=== PATIENT | female | born 1950 | race Caucasian/White ===

== ENCOUNTER 2017-03-29 01:55 | Observation (INO) | payer OTHER ==
[~2017-03-29] VITALS: Ht 165.1 cm; Wt 59.0 kg
--- NOTE | ~2017-03-29 | HP ---
Unit #: [id number] #: [id number] Patient: GARRY SCHROEDER [id number] [address] [place], [place] [address] [id number] I MR#: [id number] NAME: GARRY SCHROEDER ROOM: 563 Age: 66 Sex: F Admission Date: 03/29/2017 : 1950 Attending Physician: Arlette Tavares M.D. Primary Care Physician: Favio Oleary Jr., M.D. HISTORY AND PHYSICAL CHIEF COMPLAINT Acute back pain, elevated temperature. HISTORY OF PRESENT ILLNESS Ms. Alan Zacarias is a 66-year-old female with a history of chronic back pain who presents to the ER for acute onset of back pain. I will note, history is taken both from the patient and the ER record and they seem to differ. Patient informed the ER she was having worsening back pain more so in the flank than normal over the past one week. However, last night while watching a movie she developed intense bilateral flank pain that she assumed was her kidneys and thus presented to the emergency department. Upon presentation, the patient was tachycardic and had a temperature of 100.5. She was also hypertensive. Her O2 sats were 97% on 2 L per nasal cannula, which was her baseline oxygen requirement. Her urinalysis was unremarkable for urinary tract infection and blood work was also essentially unremarkable. However, due to her elevated temperatures she was been referred for admission. She denies feeling feverish at home the last few days. She did have a sore throat a few days ago for which she gargled and has not felt bad otherwise. She has not had any new shortness of breath. She has not had any chest pain. She has not had any cough. She has not had any dysuria, but she has a new onset urinary frequency with what sounds like both urge incontinence and just uncontrolled incontinence, which is new. She denies any new lower extremity weakness or numbness. She is quite concerned and is insistent her kidneys are causing her trouble. I will note, she did undergo a CT scan of the abdomen and pelvis, which did not reveal any acute findings. PAST MEDICAL HISTORY 1. Chronic back pain for which the patient is maintained on narcotics. 2. Chronic hypoxic respiratory failure maintained on 2 L of oxygen per nasal cannula continuously. 3. COPD. 4. Hypertension. 5. Anxiety with depression maintained on chronic benzodiazepines. 6. Seizure disorder. PAST SURGICAL HISTORY Multiple back surgeries, appendectomy at age 6 and right arm surgery after trauma. She did have a waqas placed. ALLERGIES Cephalexin, Bactrim, amoxicillin, irbesartan. FAMILY HISTORY Unit #: [id number] #: [id number] Patient: GARRY SCHROEDER Positive for non-Hodgkin lymphoma in patient's mother who is . Patient's father had mesothelioma and is also . SOCIAL HISTORY The patient quit smoking four to five years ago. She states she smokes "a lot for many years but will not quantify otherwise. No alcohol use. No illicit drug use. She does live by herself and denies any recent falls at home. REVIEW OF SYSTEMS Patient states currently her acute onset of back pain is resolved. She cannot tell me whether it is sharp, stabby, crampy or electrical, just that "it hurt a lot." Again elevated temperature. No new cough. New urinary urgency. No constipation. No diarrhea. No melena. No hematochezia. No chest pain. No palpitations. Sore throat has noted no division changes. No knew tingle, numbness, or weakness of extremities. Otherwise ten point review of systems is negative. Please note, patient has taken three to four days of clindamycin, thinking it would help her kidneys. PHYSICAL EXAMINATION VITAL SIGNS: Maximum temperature 100.5, current temperature 100.1, pulse 79, down from 110s. Respiratory rate 21, blood pressure 159/90, oxygen saturation is 97% on 2 L per nasal cannula. GENERAL: Patient is awake, she is alert, and she is oriented x3 and quite anxious. HEENT: Pupils equal, round, reactive to light bilaterally. Anicteric sclerae. No conjunctival pallor. Oropharynx with moist mucous membranes. No erythema or exudate. Very poor dentition with several missing teeth and/or decayed teeth. NECK: Supple. No lymphadenopathy. No thyromegaly. No JVD. HEART: Tachycardiac upon auscultation but regular rhythm without murmur, rub or gallop. LUNGS: Diminished bilaterally but otherwise clear without any wheezes, rhonchi or crackles. ABDOMEN: Soft, nontender, nondistended, positive bowel sounds. No appreciable hepatosplenomegaly. EXTREMITIES: No cyanosis, clubbing or edema. Pedal pulses 2/4. SKIN: Warm and moist without rash. MUSCULOSKELETAL: No significant joint abnormalities noted in the upper lower extremities. Scoliosis of the back and kyphosis of the back also noted. There is some mild tenderness to palpation and thickening of the muscle in the flanks in the thoracic to lumbar region bilaterally. NEUROLOGIC: Cranial nerves II-XII intact. Sensation and strength in deep tendon reflexes are normal in upper and lower extremities bilaterally. PSYCHIATRIC: Anxious. No suicidal or homicidal ideation. DIAGNOSTIC STUDIES LABORATORY STUDIES: Lab work done in the emergency department reveals a white blood cell count of 9.6, hemoglobin 12.9, platelet count of 352,000. Urinalysis reveals 1+ protein but is negative for any signs of infection. Sodium 136, potassium 2.9, chloride 95, bicarb 29, BUN 7, creatinine 0.5, glucose 134. IMAGING STUDIES: A CT scan of the abdomen and pelvis done in the emergency department revealed diverticulosis. The sigmoid and descending colon without evidence of diverticulitis. Calcified uterine fibroid noted and pulmonary emphysema noted. Unit #: [id number] #: [id number] Patient: GARRY SCHROEDER Chest x-ray reveals changes of COPD including hyperinflation, otherwise lungs are clear. CARDIOLOGY STUDIES: EKG revealed sinus tachycardiac without any other acute ST or T wave abnormalities. ASSESSMENT 1. Elevated temperature with no identifiable source of infection. 2. Systemic inflammatory response disease versus sepsis. 3. Acute on chronic back pain, I suspect muscular in origin. 4. New onset urinary incontinence with negative workup for urinary tract infection. 5. Hypokalemia. 6. COPD without exacerbation. 7. Chronic hypoxic respiratory failure maintained on 2 L of oxygen per nasal cannula. 8. Hypertension. 9. Depression with anxiety. 10. Seizure disorder. 11. Chronic pain syndrome. PLAN 1. Will place patient in observation with telemetry. 2. Given infectious workup to this point has been negative. I am going to hold any further antibiotics unless patient develops a temperature greater than 101. Will monitor fever closely and will repeat CBC in the morning. 3. Will continue patient's chronic home pain medications and will have PT, OT and eval and treat. Given her lack of new symptoms in the lower extremities, I doubt any sort of acute nerve compression, causing either he pain and/or her new onset urinary incontinence. 4. Will replace potassium orally in addition to placing patient on K mag protocol and will check a magnesium level up on lab. 5. I will check post void residual regarding patient's urinary incontinence to see if she has a significant residual period. Her symptom sound primarily like urge incontinence. 6. Continue oxygen at home dose. I will also continue home medication for COPD. I do not feel Solu-Medrol is indicated the way patient sounds today. 7. Will continue home medications for anxiety and chronic pain in addition to hypertension and seizure disorder. 8. Early ambulation is DVT prophylaxis. Dictated by Arlette Tavares M.D. SAUMAY/jefferson TD: 03/29/2017 09:16 JOB #: [id number] Unit #: [id number] #: [id number] Patient: GARRY SCHROEDER HISTORY AND PHYSICAL Page 1 of 1 X Arlette Tavares MD X HISTORY AND PHYSICAL
--- NOTE | ~2017-03-29 | DS ---
Unit #: [id number] #: [id number] Patient: GARRY SCHROEDER [id number] [address] [address] [id number] I MR#: [id number] NAME: GARRY SCHROEDER ROOM: 563 Age: 66 Sex: F Admission Date: 03/29/2017 : 1950 Discharge Date: 03/30/2017 Attending Physician: Arlette Tavares M.D. Primary Care Physician: Favio Oleary Jr., M.D. DISCHARGE SUMMARY PRINCIPAL DIAGNOSES 1. Elevated temperature without obvious source of infection. 2. New onset incontinence which appears to be most likely urge incontinence. 3. Acute back pain secondary to muscle spasm. 4. Severe lumbar degenerative disk disease with moderate to severe canal stenosis at L4-L5, being followed on an outpatient basis. 5. Hypokalemia. 6. Chronic hypoxic respiratory failure, maintained on 2 liters of oxygen per nasal cannula continuously. 7. Chronic obstructive pulmonary disease. 8. Anxiety and depression. 9. Hypertension. 10. Seizure disorder. 11. Mild deconditioning. 12. Chronic pain syndrome, maintained on narcotics. 13. Osteoporosis. CONSULTANTS None. DIAGNOSTIC DATA IMAGING: CT scan of the lumbar spine without contrast on 03/30/2017 with a T12 age indeterminate compression fracture of 23%. The patient also has an L2 compression approximately 19% compression, age indeterminate. Moderate to severe canal stenosis at L4-L5 with associated bilateral foraminal narrowing and stenosis. Please note, the patient had MRI two weeks ago that revealed similar findings. CT scan of the abdomen and pelvis without contrast on 03/29/2017 with no acute abnormalities. Diverticulosis of the sigmoid and descending colon is noted and changes of emphysema noted. CLINICAL HISTORY/HOSPITAL COURSE Ms. Phillips is a 66-year-old female who presented to the emergency department with the abrupt onset of severe back pain. Please refer to history and physical for further details. In the emergency room she was also found to have an elevated temperature of 100.5. However, infectious workup was negative and CT scan did not reveal any acute findings. The patient was subsequently admitted. In regard to the patient's elevated temperature, this was simply monitored and she had no recurrent fever during hospitalization. She has no infectious symptoms. Workup is negative and again no antibiotics on Unit #: [id number] #: [id number] Patient: GARRY SCHROEDER discharge. In regard to the patient's severe back pain, initially it was thought that this might represent kidney stone and/or urine infection, but workup for both of these conditions was negative. I suspect the patient had abrupt severe muscle spasm, perhaps induced by her hypokalemia. She has had no recurrent symptoms during hospitalization. The patient does have severe back pain and it appears that her function at home has been declining over the last several weeks after discussion with family. Given she also has relatively new incontinence which is consistent with urge incontinence by history, I did do CT scan of her lower spine, but this did not reveal any new compression fractures. The patient did have MRI of her spine done about two weeks ago and she was having the incontinence at that time as well. She is not having any saddle anesthesia. No new lower extremity numbness or weakness. I think she can be followed up by her spine surgeon on an outpatient basis. The patient's other chronic conditions remain stable and she will be discharged home today. DISCHARGE CONDITION Stable. DISPOSITION Discharge to home. FOLLOWUP 1. She will have home health upon discharge for physical therapy and to. 2. The patient will follow up with [facility] in one week. 3. She will follow up with (1) Spine surgery as previously determined. DISCHARGE MEDICATIONS 1. Prednisone 20 mg 1 tablet p.o. daily for 2 days, then half tablet p.o. for 2 days, then discontinue. 2. Ventolin nebulizer treatments b.i.d. 3. Advair 500/50 1 puff b.i.d. 4. Tegretol 100 mg b.i.d. 5. Gabapentin 300 mg t.i.d. 6. Cymbalta 30 mg b.i.d. 7. Norvasc 10 mg daily. 8. Metoprolol succinate 25 mg b.i.d. 9. Clonidine 0.1 mg b.i.d. 10. Ibuprofen 800 mg p.o. t.i.d. p.r.n. pain. 11. Hydrocodone/Tylenol 7.5/300 mg 1 q.6 h. p.r.n. pain. 12. Flexeril 5 mg p.o. q.8 h. p.r.n. muscle spasm. DISCHARGE DIET The patient is instructed to follow a heart healthy diet. She can increase her activity as tolerated. She is to wear oxygen at 2 liters at all times. Dictated by... Arlette Tavares M.D. Unit #: [id number] #: [id number] Patient: GARRY SCHROEDER ZOILAH/gz TD: 03/31/2017 11:09 JOB #: [id number] DISCHARGE SUMMARY Page 1 of 1 X Arlette Tavares MD X DISCHARGE SUMMARY
--- NOTE | ~2017-03-29 | CT98 ---
[facility] A Service of [facility] & [facility] RADIOLOGY TEXT RESULTS PATIENT: GARRY SCHROEDER LOCATION: [facility] 563-01 : [birth year] UNIT #: [id number] AGE: [address]: Arlette Tavares MD SEX: F ORDER DR: [id number] [facility] [address]. [place], [place] [address] [id number] I MR#: [id number] #: [id number] NAME: GARRY SCHROEDER : 1950 SEX: F STUDY DATE/TIME: 03/30/2017 12:17 UNIT: [facility] ROOM: [facility] STUDY DESCRIPTION: CT Lumbar Spine Wo Cont Attending Physician: Arlette Tavares M.D. Ordering Physician: Arlette Tavares M.D. Primary Care Physician: Favio Oleary Jr., M.D. MEDICAL IMAGING REPORT This report is preliminary unless electronic signature is present EXAMINATION CT lumbar spine without contrast. DATE 03/30/2017 HISTORY Loss of bladder control for 1 week and low back pain for 2 days. History of seizures. COMPARISON CT abdomen and pelvis without contrast, bone windows 03/29/2017. No previous dedicated lumbar spine imaging at this institution for comparison. PROCEDURE 2 mm axial images through the lumbar spine without contrast. Sagittal and coronal reformatted images were obtained. This CT exam was performed with one or more of the following radiation dose reduction techniques: automatic exposure control, adjustment of mA and/or kV according to patient size, and iterative reconstruction. FINDINGS The study is limited secondary to attenuation by the patient's body habitus. No vertebral body subluxation is seen. There is moderate diminished disc space height at L1-2, L2-3, mild diminished disc height at L3-4. Age-indeterminate compression fracture of the superior endplate of T12 with 23% loss of vertebral body height, but no retropulsion or subluxation. Age indeterminate fracture of the superior endplate of L2 with 19% loss of vertebral body height, but no bony retropulsion or subluxation. Suspected chronic compression deformity of the inferior endplate of L3 with Schmorl STS. [facility] A Service of [facility] & [facility] RADIOLOGY TEXT RESULTS PATIENT: GARRY SCHROEDER LOCATION: [facility] 563-01 : [birth year] UNIT #: [id number] AGE: [address]: Arlette Tavares MD SEX: F ORDER DR: node protrusion with approximately 31% loss of vertebral body height, but no bony retropulsion or subluxation. Suspected chronic compression deformity of the inferior endplate of L4 with Schmorl node protrusion with 25% loss of vertebral body height, but no definite bony retropulsion or subluxation. At T12-L1, no significant disc bulge, canal or foraminal stenosis is seen. At L1-2, there is mild concentric disc osteophyte formation with mild facet arthropathy. There is mild canal stenosis. Probable mild bilateral inferior neural foraminal narrowing. At L2-3, there is concentric disc osteophyte formation with mild bilateral facet arthropathy and ligament flavum hypertrophy. Mild canal stenosis and mild to moderate bilateral inferior neural foraminal narrowing is thought to be present. At L3-4, there is concentric disc bulge with mild bilateral facet arthropathy, probable mild canal stenosis and mild to pvrt-la-[id number] bilateral inferior neural foraminal narrowing. At L4-5, there is concentric disc osteophyte formation with moderate to mild facet arthropathy ligament flavum hypertrophy. Suspected moderate to severe canal stenosis and moderate to severe bilateral inferior neural foraminal narrowing. At L5-S1, there is mild bilateral facet arthropathy without significant canal or foraminal stenosis. IMPRESSION 1. Age indeterminant compression deformity of the superior endplate of T12 with 23% loss of vertebral body height but no bony retropulsion or subluxation. 2. Age indeterminant compression deformity of the superior endplate of L2 with 19% loss of vertebral body height, but no bony retropulsion or subluxation. 3. Chronic-appearing compression deformities with Schmorl node protrusions involving the inferior endplates of L4 and L3. 4. Suspected moderate to moderate severe canal stenosis at L4-5 due to the presence of concentric disc osteophyte formation and facet arthropathy. Suspected moderate to severe bilateral neural foraminal narrowing at that level, as well. 5. If it would aid in clinical management, MRI of the lumbar spine may prove helpful to evaluate for vertebral body edema, in order to determine chronicity of compression deformities, may help to further elucidate any potential canal or foraminal compromise. 6. This study is limited secondary to the patient's body habitus. [facility] A Service of [facility] RADIOLOGY TEXT RESULTS PATIENT: GARRY SCHROEDER LOCATION: [facility] : [birth year] UNIT #: [id number] AGE: [address]: Arlette Tavares MD SEX: F ORDER DR: Dictated by... Nevaeh Tate M.D. THIS IS AN ELECTRONICALLY VERIFIED REPORT Nevaeh Tate M.D. at 03/31/2017 1:52 PM JENA/lety TD: 03/30/2017 17:17 JOB #: [id number] MEDICAL IMAGING REPORT Page 1 of 1 COPY
--- NOTE | ~2017-03-29 | CT4 ---
[facility] A Service of [facility] & [facility] RADIOLOGY TEXT RESULTS PATIENT: GARRY SCHROEDER LOCATION: [facility] 563-01 : [birth year] UNIT #: [id number] AGE: [address]: Arlette Tavares MD SEX: F ORDER DR: [id number] [facility] [address] [place] [address]. [place], [place] [address] [id number] I MR#: [id number] Acc #: [id number] NAME: GARRY SCHROEDER : 1950 SEX: F STUDY DATE/TIME: 03/29/2017 4:23 UNIT: [facility] ROOM: [facility] STUDY DESCRIPTION: CT Abd and Pelv Wo Cont Attending Physician: Arlette Tavares M.D. Ordering Physician: Grzegorz Frank Aprn Primary Care Physician: Favio Oleary Jr., M.D. MEDICAL IMAGING REPORT This report is preliminary unless electronic signature is present EXAM CT abdomen and pelvis, noncontrast, 03/29/2017. HISTORY 66-year-old female in the ED complaining of a 1-week history of lower abdomen pain, worsening tonight. Shortness of air, back pain. TECHNIQUE CT examination of the abdomen and pelvis was performed without oral or IV contrast, as ordered. This CT exam was performed with one or more of the following radiation dose reduction techniques: automatic exposure control, adjustment of mA and/or kV according to patient size, and iterative reconstruction. FINDINGS ABDOMEN FINDINGS: Liver, pancreas and spleen are normal in size and appearance without contrast. No gallbladder distension or bile duct dilatation. Both kidneys are negative with no visible nephrolithiasis or evidence of urinary obstruction. Xjlv-xv-[id number] sigmoid and descending colonic diverticulosis, but no CT evidence of acute diverticulitis. Small bowel and colon are otherwise within normal limits, as imaged. The appendix is surgically absent by history. Abdominal aorta is normal in caliber. PELVIS FINDINGS: Small densely calcified uterine fibroid. Uterus, ovaries, urinary bladder, and rectum are otherwise negative. No inguinal hernia. Limited lung base images show pulmonary emphysema. Mild, chronic-appearing vertebral compression deformities at T12 and L2. STS. [facility] A Service of [facility] & [facility] RADIOLOGY TEXT RESULTS PATIENT: GARRY SCHROEDER LOCATION: [facility] 563-01 : [birth year] UNIT #: [id number] AGE: [address]: Arlette Tavares MD SEX: F ORDER DR: IMPRESSION 1. No acute abnormality within the abdomen or pelvis. 2. Sigmoid and descending colonic diverticulosis without evidence of diverticulitis. The appendix is surgically absent. 3. Tiny calcified uterine fibroid. 4. Pulmonary emphysema. Dictated by... Benedict Posada M.D. THIS IS AN ELECTRONICALLY VERIFIED REPORT Benedict Posada M.D. at 03/29/2017 9:46 PM SOPHIAW/anne TD: 03/29/2017 10:43 JOB #: [id number] MEDICAL IMAGING REPORT Page 1 of 1 COPY
--- NOTE | ~2017-03-29 | EKG ---
PATIENT: GARRY SCHROEDER UNIT #: [id number] Ventricular Rate: 134 BPM Atrial Rate: 134 BPM P-R Interval: 114 ms QRS Duration: 68 ms Q-T Interval: 306 ms QTC Calculation(Bezet): 456 ms P [place]: 84 degrees Calculated R [place]: 63 degrees Calculated T [place]: 58 degrees Diagnosis Line: Sinus tachycardia Diagnosis Line: Poor data quality Diagnosis Line: Borderline ECG Diagnosis Line: No previous ECGs available Diagnosis Line: Confirmed by PHILL TADEO MD ([id number]) on 03/30/2017 Diagnosis Line: 10:17:34 PM INTERPRETING MD: CARLYLE NARAYAN
--- NOTE | ~2017-03-29 | CR72 ---
[facility] A Service of [facility] & [facility] RADIOLOGY TEXT RESULTS PATIENT: GARRY SCHROEDER LOCATION: [facility] 563-01 : [birth year] UNIT #: [id number] AGE: [address]: Arlette Tavares MD SEX: F ORDER DR: [id number] [facility] [address] [place], [place] [address] [id number] I MR#: [id number] Acc #: [id number] NAME: GARRY SCHROEDER : 1950 SEX: F STUDY DATE/TIME: 03/29/2017 3:27 UNIT: [facility] ROOM: [facility] STUDY DESCRIPTION: CR Chest Single View Portable Attending Physician: Arlette Tavares M.D. Ordering Physician: Grzegorz Frank Aprn Primary Care Physician: Favio Oleary Jr., M.D. MEDICAL IMAGING REPORT This report is preliminary unless electronic signature is present EXAM Chest x-ray 03/29/2017 HISTORY 66-year-old female in the ED complaining of 3-day history of chest pain, shortness of air, cough, congestion and fever. TECHNIQUE AP portable chest x-ray. FINDINGS Pulmonary hyperinflation and diffuse lung hyperlucency compatible with COPD. The lungs appear clear. Heart size and pulmonary vascularity are normal. Previous mid thoracic vertebroplasty. No change since 08/16/2010. IMPRESSION 1. No active disease. 2. COPD. The lungs appear clear. Dictated by... Benedict Posada M.D. THIS IS AN ELECTRONICALLY VERIFIED REPORT Benedict Posada M.D. at 03/29/2017 9:46 PM RGW/alessandro TD: 03/29/2017 09:07 JOB #: [id number] MEDICAL IMAGING REPORT Page 1 of 1 COPY
[~2017-03-29 01:55] MED LIST: ADVAIR 5001 DISK W/D; ALLEGRA-D1 TAB.SR1; TEGRETOL PO
[2017-03-29 03:33] LABS: URINE APPEARANCE CLEAR; URINE BILIRUBIN NEG (NEG); URINE BLOOD NEG (NEG); URINE COLOR YELLOW; URINE GLUCOSE NEG (NEG); URINE KETONE NEG (NEG); URINE LEUKOCYTE ESTERASE NEG (NEG); URINE NITRATE NEG (NEG); URINE PROTEIN 1+ (NEG); URINE SPECIFIC GRAVITY 1.011 (1.003-1.035); URINE UROBILINOGEN 0.2 MG/DL (NEG)
[2017-03-29 03:33] LABS: BASOPHIL# 0.1 X10e3 (0-0.3); BASOPHIL% 0.8 % (0-2.5); DIFF IND NO; EOSINOPHIL# 0.2 X10e3 (0-0.7); EOSINOPHIL% 1.6 % (0.0-7.0); HEMATOCRIT 36.7 % (35.0-45.0); HEMOGLOBIN 12.5 gm/dL (12.0-16.0); LYMPHOCYTE# 1.2 X10e3 (1.0-3.5); LYMPHOCYTE% 12.9 % (17.0-45.0); MEAN CELL VOLUME 91.9 FL (83-96); MEAN CORPUSCULAR HEMOGLOBIN 31.2 PG (28-34); MEAN PLATELET VOLUME 7.5 FL (6.5-11.5); MONOCYTE# 0.6 X10e3 (0-1.0); NEUTROPHIL# 7.6 X10e3 (1.5-7.1); NEUTROPHIL% 78.7 % (40-75); PLATELET COUNT 352 X10e3 (140-420); RED BLOOD COUNT 3.99 X10e (3.90-5.30); RED CELL DISTRIBUTION WIDTH 12.5 % (11.0-15.5); WHITE BLOOD COUNT 9.6 X10e3 (4.0-10.5)
[2017-03-29 03:35] LABS: URBCS1 AUWI 0-2 /[HPF] (0-2); URINE BACTERIA AUWI NEG (NEGATIVE); URINE SQUAMOUS EPITHELIAL CELL NONE SEEN /[HPF]; UWBCS1 AUWI 0-2 (0-5)
[2017-03-29 03:38] LABS: CULTURE INDICATED? NO
[2017-03-29 03:49] LABS: ALBUMIN SERUM 4.4 g/dL (3.5-5.0); BILIRUBIN, DIRECT 0.1 mg/dL (0.0-0.2); BILIRUBIN,INDIRECT 0.7 mg/dL (0.0-0.9); BILIRUBIN,TOTAL 0.8 mg/dL (0.2-2.0); CALCIUM SERUM 9.4 mg/dL (8.4-10.2); CREATININE SERUM 0.5 mg/dL (0.6-1.4); GLOM FILT RATE Estimated 99.5 mL/min (>60); PROTEIN TOTAL SERUM 7.5 g/dL (6.0-8.3)
[2017-03-29 03:50] LABS: POTASSIUM 2.9 mmol/L (3.5-5.1)
[2017-03-29] MEDS ORDERED: CYMBALTA30 M1 PO (19:31)
[2017-03-29] MEDS ORDERED: NORVASC10 MG PO (19:32)
[2017-03-29] MEDS ORDERED: IBUPROFEN800 MG PO (19:33)
[2017-03-29] MEDS ORDERED: CYCLOBENZAPRINE5 MG PO (19:33)
[2017-03-29] MEDS ORDERED: METOPROLOL SUCC25 MG PO (19:33)
[2017-03-29] MEDS ORDERED: HYDROCODON-ACE1 EA14 PO (19:34)
[2017-03-29] MEDS ORDERED: ALBUTEROL17 GM (19:36)
[2017-03-29] MEDS ORDERED: GABAPENTIN300 MG PO (19:36)
[2017-03-29] MEDS ORDERED: CLONIDINE HCL0.1 MG PO (19:37)
[2017-03-30 07:16] LABS: HEMATOCRIT 35.3 % (35.0-45.0); HEMOGLOBIN 12.2 gm/dL (12.0-16.0); MEAN CELL VOLUME 92.1 FL (83-96); MEAN CORPUSCULAR HEMOGLOBIN 31.7 PG (28-34); MEAN CORPUSCULAR HGB CONC 34.5 g/dL (30-36); MEAN PLATELET VOLUME 7.3 FL (6.5-11.5); RED BLOOD COUNT 3.84 X10e (3.90-5.30); RED CELL DISTRIBUTION WIDTH 12.7 % (11.0-15.5); WHITE BLOOD COUNT 11.7 X10e3 (4.0-10.5)
[2017-03-30 07:52] LABS: BUN/CREATININE RATIO 12.22; CALCIUM SERUM 10.1 mg/dL (8.4-10.2); CREATININE SERUM 0.9 mg/dL (0.6-1.4); GLOM FILT RATE Estimated 65.7 mL/min (>60); MAGNESIUM 2.2 mg/dL (1.6-3.0); POTASSIUM 3.8 mmol/L (3.5-5.1)
[2017-03-30] MEDS ORDERED: PREDNISONE10 M1 PO (15:09)
== END 2017-03-30 18:01 | disposition home or self-care (01) ==
LOC: CED 01:55 → C5C 06:15 → CEDOF 06:15 → CED 06:15 → C5C 06:15 → CEDOF 07:43 → CED 07:43 → CEDOF 07:44 → C5C 07:44
PROVIDERS: Internal Medicine; Nurse Practitioner Family
DX: R50.9 Fever, unspecified (principal); R32 Unspecified urinary incontinence; M62.830 Muscle spasm of back; M51.36 Other intervertebral disc degeneration, lumbar region; M48.06 Spinal stenosis, lumbar region; E87.6 Hypokalemia; J96.11 Chronic respiratory failure with hypoxia; J44.9 Chronic obstructive pulmonary disease, unspecified; I10 Essential (primary) hypertension; G40.909 Epilepsy, unspecified, not intractable, without status epilepticus; G89.4 Chronic pain syndrome; M81.0 Age-related osteoporosis without current pathological fracture; F41.8 Other specified anxiety disorders; Z87.891 Personal history of nicotine dependence; Z99.81 Dependence on supplemental oxygen
CPT/HCPCS: 36415; 71010; 72131; 74176; 80048; 80076; 81003; 83605; 83735; 84132; 84443; 84484; 85025; 85027; 87040; 93005; 94640; 94664; 94760; 96361; 96374; 97116; 97162; 97165; 97535; 99285; G0378; G8978-GP; G8979-GP; G8987-GO; G8988-GO; J2185; J2930; J3475